=== PATIENT | male | born 1965 | race Caucasian/White ===

== ENCOUNTER 2023-09-16 13:10 | Emergency (ER) | payer OTHER, BC, SELFPAY ==
--- NOTE | ~2023-09-16 | XR_ITS ---
XR tibia fibula LT 2V 09/16/2023 14:10 INDICATION: Trauma to the calf. PROCEDURE: 2 views left tibia/fibula COMPARISON: No prior studies for comparison. FINDINGS: There is a nondisplaced fibular shaft fracture. No other fracture or traumatic malalignment .. The soft tissues appear within normal limits. No foreign bodies are identified. IMPRESSION: 1: Nondisplaced fibular diaphyseal fracture. Reviewed, dictated and finalized at location B.
[2023-09-16 13:26] VITALS: BP 134/102; PULSE 80; RESP 18; TEMP 36.2; O2SAT 99
--- NOTE | 2023-09-16 13:56 | ED.GENADULT ---
HPI - General Adult General Chief complaint: Extremity Injury, Lower Stated complaint: left leg injury Time Seen by Provider: 09/16/23 13:11 Source: patient Mode of arrival: ambulatory Limitations: no limitations History of Present Illness HPI narrative: This is a 57-year-old male who presents to the ED with chief complaint of left calf pain following injury today. Patient works as [employer] worker and [place] Patient reports that he was standing by a low truck trailer when a vehicle came around and hit the trailer. Reports that the trailer went directly into his calf and caused him to fall into the trailer. Reports pain to the left posterior calf. Denies numbness or weakness. Denies head injury. Denies any further sites of pain Related Data Allergies Allergy/AdvReac Type Severity Reaction Status Date / Time No Known Allergies Allergy Unknown Unverified 09/13/18 10:42 Review of Systems Review of Systems: All systems as dictated in HPI Exam Narrative: GENERAL: Well-appearing, well-nourished, and in no acute distress. MSK: Mild left calf tenderness. Neurovascularly intact distally. No swelling. No bruising. 5/5 strength and sensation of bilateral lower extremities. Able to bear weight. SKIN: Warm, dry, no rash. NEURO: Alert and oriented x3. No focal deficits. PSYCH: Normal mood and affect. Course Vital Signs Vital signs: Vital Signs Temperature 97.1 F L 09/16/23 13:26 Pulse Rate 80 09/16/23 13:26 Respiratory Rate 18 09/16/23 13:26 Blood Pressure 134/102 H 09/16/23 13:26 Pulse Oximetry 99 09/16/23 13:26 Oxygen Delivery Room Air 09/16/23 13:26 Temperature 97.1 F L 09/16/23 13:26 Pulse Rate 80 09/16/23 13:26 Respiratory Rate 18 09/16/23 13:26 Blood Pressure 134/102 H 09/16/23 13:26 Pulse Oximetry 99 09/16/23 13:26 Oxygen Delivery Room Air 09/16/23 13:26 Medical Decision Making MDM Narrative Medical decision making narrative: This is a 57-year-old male who presents to the ED with chief complaint of left calf injury while at work today. He was struck by a truck trailer in the calf. Vitals are normal. Exam remarkable for the above. No significant deformity. Neurovascularly intact. X-rays of the left tib-fib show acute nondisplaced fibular diaphyseal fracture. Patient was placed in posterior short-leg splint given crutches. Ortho referral for this fracture given. Rx for [place] for breakthrough pain. Pt will be discharged in stable condition. Return precautions given and supportive measures discussed. Pt is understanding and agreeable with plan for discharge and follow-up with PCP/ortho Vital Signs Vital Signs: Vital Signs Temperature 97.1 F L 09/16/23 13:26 Pulse Rate 80 09/16/23 13:26 Respiratory Rate 18 09/16/23 13:26 Blood Pressure 134/102 H 09/16/23 13:26 Pulse Oximetry 99 09/16/23 13:26 Oxygen Delivery Room Air 09/16/23 13:26 Temperature 97.1 F L 09/16/23 13:26 Pulse Rate 80 09/16/23 13:26 Respiratory Rate 18 09/16/23 13:26 Blood Pressure 134/102 H 09/16/23 13:26 Pulse Oximetry 99 09/16/23 13:26 Oxygen Delivery Room Air 09/16/23 13:26 Discharge Plan Discharge Clinical Impression: Closed left fibular fracture Patient Disposition: Home, Self-Care Condition: Stable Instructions: Antibiotic Form Additional Instructions: Your exam and imaging today are reassuring overall. There is a very small fibula fracture on the left side. Follow-up with orthopedics. Please take Tylenol and ibuprofen regularly for pain control. Follow-up with your PCP. If you have any new or worsening symptoms please return to the ER for further evaluation. Prescriptions: New hydrocodone-acetaminophen 5-325 mg tablet 1 tablet PO Q8H PRN (Reason: pain) Qty: 14 0RF Follow-up/Referrals: Jessy Mtz APRN [Primary Care Provider] - Jim Hudson MD [Physician] - Time
[2023-09-16] MEDS: IBUPROFEN 400 MG TABLET 800 MG PO (14:03)
== END 2023-09-16 14:57 | disposition home or self-care (01) ==
PROVIDERS: Emergency Provider Physician Assistant; PCP Nurse Practitioner Family
DX: S82.492A Other fracture of shaft of left fibula, initial encounter for closed fracture (principal); V04.10XA Pedestrian on foot injured in collision with heavy transport vehicle or bus in traffic accident, initial encounter
CPT/HCPCS: 29515; 73590; 99284; A9270

== ENCOUNTER 2023-09-20 11:36 | Outpatient (CLI) | payer OTHER, SELFPAY ==
--- NOTE | ~2023-09-20 | US_ITS ---
EXAMINATION:US venous doppler LE LT INDICATION:Localized edema TECHNIQUE: Multiple grayscale, color flow and Doppler images of the left lower extremity deep venous systems were obtained and reviewed. COMPARISON:No prior studies for comparison. FINDINGS: The common femoral, superficial femoral and popliteal veins demonstrate normal respiratory variation, augmentation and compressibility. Color flow is also seen within the posterior tibial, pe roneal, greater saphenous and profunda veins. IMPRESSION: 1: No lower extremity deep venous thrombosis. Reviewed, dictated and finalized at location B.
== END 2023-09-20 11:37 | disposition home or self-care (01) ==
LOC: ANHIMG 11:39
PROVIDERS: PCP Family Medicine; Visit Provider Orthopaedic Surgery
DX: R60.0 Localized edema (principal)
CPT/HCPCS: 93971